=== PATIENT | female | born 1985 | race Caucasian/White ===

== ENCOUNTER 2019-03-21 10:43 | Inpatient (IN) | payer MEDICAID ==
[~2019-03-21] VITALS: Ht 154.9 cm; Wt 84.8 kg
[~2019-03-21 10:43] MED LIST: IBUP-1542 PO; PNV11TAB PO; PREMVAG VAG
[2019-03-21 11:05] VITALS: BP 115/67; PULSE 96; RESP 18
[2019-03-21] MEDS ORDERED: LIDOCAINE 1% (MPF) 30 ML INJ INJ PRN (14:30)
[2019-03-21] MEDS ORDERED: OXYTOCIN 30 UNITS/LR 500 ML IV PRN (14:30)
[2019-03-21] MEDS ORDERED: IBUPROFEN 600 MG TAB PO PRN (14:30)
[2019-03-21] MEDS ORDERED: CARBOPROST 250 MCG INJ IM PRN (14:30)
[2019-03-21] MEDS ORDERED: BUTORPHANOL 2 MG INJ IV PRN ×2 (14:30)
[2019-03-21] MEDS ORDERED: MISOPROSTOL 200 MCG TAB PR PRN (14:30)
[2019-03-21] MEDS: LACTATED RINGER'S 1,000 ML IV SCH ×2 (14:30→20:03)
[2019-03-21] MEDS ORDERED: MINERAL OIL LIGHT 10 ML VIAL TOP PRN (14:30)
[2019-03-21] MEDS ORDERED: OXYCODONE/ASPIRIN (4.88/325) TAB PO PRN (14:30)
[2019-03-21] MEDS ORDERED: METHYLERGONOVINE 0.2 MG INJ IM PRN (14:30)
[2019-03-21] MEDS ORDERED: OXYTOCIN 30 UNITS/LR 500 ML IV SCH (14:30)
[2019-03-21] MEDS: MISOPROSTOL 50 MCG CAPSULE PO SCH ×2 (14:50→20:58)
[2019-03-22] MEDS: MISOPROSTOL 50 MCG CAPSULE PO SCH ×4 (00:51→09:00)
[2019-03-22] MEDS: LACTATED RINGER'S 1,000 ML IV SCH ×2 (04:25→12:32)
[2019-03-22] MEDS ORDERED: OXYTOCIN 30 UNITS/LR 500 ML IV SCH (09:00)
[2019-03-22] MEDS ORDERED: KETOROLAC 30 MG INJ IV STA (17:56)
[2019-03-22] MEDS ORDERED: ACETAMINOPHEN 500 MG TAB PO STA (17:56)
[2019-03-22] MEDS: OXYTOCIN 30 UNITS/LR 500 ML IV SCH ×2 (18:28→19:26)
[2019-03-22 20:00] VITALS: BP 124/62; PULSE 56; RESP 18
[2019-03-22] MEDS ORDERED: ZOLPIDEM 5 MG TAB PO PRN (20:30)
[2019-03-22] MEDS ORDERED: MISOPROSTOL 200 MCG TAB PR PRN (20:30)
[2019-03-22] MEDS ORDERED: LANOLIN HPA 1 PKT TOP PRN (20:30)
[2019-03-22] MEDS ORDERED: OXYTOCIN 30 UNITS/LR 500 ML IV PRN (20:30)
[2019-03-22] MEDS ORDERED: CARBOPROST 250 MCG INJ IM PRN (20:30)
[2019-03-22] MEDS ORDERED: DIBUCAINE 1% 30 GM OINT TOP PRN (20:30)
[2019-03-22] MEDS ORDERED: METHYLERGONOVINE 0.2 MG INJ IM PRN (20:30)
[2019-03-22] MEDS ORDERED: HYDROCODONE/APAP (5/325) TAB PO PRN ×2 (20:30)
[2019-03-22] MEDS ORDERED: WITCH HAZEL/GLYCERIN PAD PR PRN (20:30)
[2019-03-22] MEDS ORDERED: BENZOCAINE 20% 56 ML SPRAY TOP PRN (20:30)
[2019-03-22] MEDS ORDERED: ESTROGENS CONJUGATED 42.5 GM VAG CR VAG SCH (21:00)
[2019-03-22] MEDS: MAGNESIUM HYDROXIDE 30ML CUP PO SCH (21:31)
[2019-03-22] MEDS: SENNA/DOCUSATE NA (8.6MG/50MG) TAB PO SCH (21:31)
[2019-03-22] MEDS: IBUPROFEN 600 MG TAB PO SCH (23:57)
[2019-03-22] MEDS: LACTATED RINGER'S 1,000 ML IV* SCH (23:57)
[2019-03-23] VITALS: BP 98/54; PULSE 56; RESP 18
[2019-03-23] MEDS: LACTATED RINGER'S 1,000 ML IV* SCH (04:11)
[2019-03-23 04:20] VITALS: BP 96/51; PULSE 55; RESP 18
[2019-03-23] MEDS: IBUPROFEN 600 MG TAB PO SCH ×3 (05:57→18:04)
[2019-03-23 08:00] VITALS: BP 91/53; PULSE 57; RESP 16
[2019-03-23] MEDS: SENNA/DOCUSATE NA (8.6MG/50MG) TAB PO SCH ×2 (10:22→21:00)
[2019-03-23] MEDS: ESTROGENS CONJUGATED 42.5 GM VAG CR VAG SCH ×2 (10:22→22:05)
[2019-03-23] MEDS: MAGNESIUM HYDROXIDE 30ML CUP PO SCH ×2 (10:22→21:00)
[2019-03-23 15:50] VITALS: BP 98/57; PULSE 67; RESP 16
[2019-03-23 19:40] VITALS: BP 99/57; PULSE 72; RESP 19
[2019-03-24 03:40] VITALS: BP 123/78; PULSE 63; RESP 19
[2019-03-24] MEDS: IBUPROFEN 600 MG TAB PO SCH ×3 (05:27→12:14)
[2019-03-24 08:00] VITALS: BP 106/63; PULSE 56; RESP 18
[2019-03-24] MEDS ORDERED: MEASLES,MUMPS,RUBELLA VACCINE INJ SC* ONE (09:00)
[2019-03-24] MEDS ORDERED: VARICELLA VACCINE LIVE/PF 1,350 UNIT/0.5 ML ML SC* ONE (09:00)
[2019-03-24] MEDS: MAGNESIUM HYDROXIDE 30ML CUP PO SCH (09:00)
[2019-03-24] MEDS: SENNA/DOCUSATE NA (8.6MG/50MG) TAB PO SCH (09:00)
[2019-03-24] MEDS ORDERED: DIPHTH/TET/ACEL PERTUSS (ADULT) 0.5 ML VIAL IM* ONE (09:00)
[2019-03-24] MEDS: ESTROGENS CONJUGATED 42.5 GM VAG CR VAG SCH (10:41)
[2019-03-24 16:00] VITALS: BP 116/70; PULSE 73; RESP 16
== END 2019-03-24 16:58 | disposition home or self-care (01) | DRG 807 ==
LOC: OBT 10:43 → L-D 10:43 → OBT 13:06 → PP1 03-22 20:03
PROVIDERS: ADMIT Obstetrics & Gynecology; ATTEND Obstetrics & Gynecology
PROC: 10E0XZZ Delivery of Products of Conception, External Approach (ICD-10-PCS; principal; 2019-03-22)
PROC: 0HQ9XZZ Repair Perineum Skin, External Approach (ICD-10-PCS; 2019-03-22)
DX: O48.0 Post-term pregnancy (principal); O70.0 First degree perineal laceration during delivery; Z37.0 Single live birth; Z3A.40 40 weeks gestation of pregnancy
CPT/HCPCS: 76815; 76818; 81001; 85025; 85610; 85730; 86592; 86850; 86900; 86901; 87086; 87340; 90716; G0463; J1885; J2590; J7120